=== PATIENT | female | born 1970 | race Caucasian/White ===

== ENCOUNTER → 2018-06-19 | Outpatient (CLI) | payer MEDICAID | LOC: OD 12:31 | PROVIDERS: ATTEND Nurse Practitioner Acute Care | DX: R30.0 Dysuria (principal) | CPT/HCPCS: 87086; 87088; 87186 ==

== ENCOUNTER → 2018-11-20 | Outpatient (CLI) | payer BC, MEDICAID ==
[2018-11-20 15:34] LABS: ABSOLUTE BASOPHILS # (AUTO) 0.1 10^3/uL (0.0-0.2); ABSOLUTE EOSINOPHILS # (AUTO) 0.2 10^3/uL (0.0-0.6); ABSOLUTE LYMPHOCYTES (AUTO) 2.4 10^3/uL (0.5-4.7); ABSOLUTE MONOCYTES (AUTO) 0.5 10^3/uL (0.1-1.4); ABSOLUTE NEUT (AUTO) 3.8 10^3/uL (1.7-8.2); BASOPHILS % (AUTO) 0.8 % (0-2); EOSINOPHILS % (AUTO) 3.1 % (0-6); HEMATOCRIT 36.2 % (36.0-47.0); HEMOGLOBIN 11.7 g/dL (12.0-15.5); LYMPHOCYTES % (AUTO) 34.4 % (13-45); MEAN CORPUSCULAR HEMOGLOBIN 24.9 pg (27.0-33.4); MEAN CORPUSCULAR HGB CONC 32.4 g/dL (32.0-36.0); MEAN CORPUSCULAR VOLUME 77 fl (80-97); MONOCYTES % (AUTO) 7.6 % (3-13); PLATELET COUNT 351 10^3/uL (150-450); RED BLOOD COUNT 4.71 10^6/uL (3.72-5.28); RED CELL DISTRIBUTION WIDTH 17.8 % (11.5-14.0); SEGMENTED NEUTROPHILS % (AUTO) 54.1 % (42-78); TOTAL CELLS COUNTED % (AUTO) 100 %
[2018-11-20 15:37] LABS: INTERNATIONAL RATION (INR) 0.93
[2018-11-20 15:38] LABS: PARTIAL THROMBOPLASTIN TIME 27.5 SEC (23.5-35.8)
[2018-11-20 15:42] LABS: APPEARANCE,URINE SLIGHTLY-CLOUDY; BILIRUBIN,URINE NEGATIVE (NEGATIVE); COLOR,URINE YELLOW; GLUCOSE, URINE NEGATIVE (NEGATIVE); KETONES,URINE NEGATIVE (NEGATIVE); LEUKOCYTE ESTERASE,URINE TRACE (NEGATIVE); NITRITE,URINE NEGATIVE (NEGATIVE); PROTEIN,URINE NEGATIVE (NEGATIVE); URINE SPECIFIC GRAVITY 1.015; UROBILINOGEN,URINE NEGATIVE mg/dL (<2.0)
== END ==
LOC: OD 14:40
PROVIDERS: ATTEND Pain Medicine Interventional Pain Medicine
DX: D68.9 Coagulation defect, unspecified (principal)
CPT/HCPCS: 36415; 81001; 85025; 85610; 85730

== ENCOUNTER 2019-01-26 06:08 | Day surgery (SDC) | payer BC, MEDICAID ==
[2019-01-22 09:53] LABS: HEMOGLOBIN 11.4 g/dL (12.0-15.5); MEAN CORPUSCULAR HEMOGLOBIN 24.7 pg (27.0-33.4); MEAN CORPUSCULAR HGB CONC 32.4 g/dL (32.0-36.0); MEAN CORPUSCULAR VOLUME 76 fl (80-97); PLATELET COUNT 322 10^3/uL (150-450); RED CELL DISTRIBUTION WIDTH 17.3 % (11.5-14.0); WHITE BLOOD COUNT 4.5 10^3/uL (4.0-10.5)
[2019-01-22 09:53] LABS: APPEARANCE,URINE SLIGHTLY-CLOUDY; BILIRUBIN,URINE NEGATIVE (NEGATIVE); COLOR,URINE YELLOW; GLUCOSE, URINE NEGATIVE (NEGATIVE); KETONES,URINE NEGATIVE (NEGATIVE); LEUKOCYTE ESTERASE,URINE NEGATIVE (NEGATIVE); NITRITE,URINE NEGATIVE (NEGATIVE); PROTEIN,URINE NEGATIVE (NEGATIVE); URINE SPECIFIC GRAVITY 1.016; UROBILINOGEN,URINE NEGATIVE mg/dL (<2.0)
--- NOTE | 2019-01-22 09:58 | RADIOLOGY REPORT (SQ) ---
EXAM DESCRIPTION: CHEST PA/LATERAL COMPLETED DATE/TIME: 01/22/2019 9:38 am REASON FOR STUDY: PRE-OP COMPARISON: None. EXAM PARAMETERS: NUMBER OF VIEWS: two views TECHNIQUE: Digital Frontal and Lateral radiographic views of the chest acquired. RADIATION DOSE: NA LIMITATIONS: none FINDINGS: LUNGS AND PLEURA: No opacities, masses or pneumothorax. No pleural effusion. MEDIASTINUM AND HILAR STRUCTURES: No masses or contour abnormalities. HEART AND VASCULAR STRUCTURES: Heart normal size. No evidence for failure. BONES: No acute findings. HARDWARE: None in the chest. OTHER: No other significant finding. IMPRESSION: 1. NO SIGNIFICANT RADIOGRAPHIC FINDING IN THE CHEST. TECHNICAL DOCUMENTATION: JOB ID: [id number] [employer]- All Rights Reserved Reading location - IP/workstation name: [email or web address]
[2019-01-22 09:59] LABS: INTERNATIONAL RATION (INR) 0.94; PARTIAL THROMBOPLASTIN TIME 26.5 SEC (23.5-35.8)
--- NOTE | 2019-01-22 21:57 | EKG REPORT ---
SEVERITY:- NORMAL ECG - SINUS RHYTHM : Confirmed by: Vishal Roblero 22-Jan-2019 21:56:36
[~2019-01-26 06:08] MED LIST: CLINDAMYCIN 900 MG/D5W RTU 900 MG/50 ML RTUPB IV ONE; CLINDAMYCIN 900 MG/D5W RTU 900 MG/50 ML RTUPB IV PRN; LACTATED RINGERS 1000 ML IV PRN; LIDOCAINE 0.5% INJ-PF (5 MG/ML) 50 ML SDV SUBCUT PRN
[2019-01-26] MEDS ORDERED: MIDAZOLAM 2 MG/2 ML INJ ONE (06:18)
[2019-01-26] MEDS ORDERED: PROPOFOL INJ 200 MG/20 ML VIAL IV ONE ×3 (06:18→10:29)
[2019-01-26] MEDS ORDERED: FENTANYL CITRATE INJ/PF 100 MCG/2 ML AMPUL ONE (06:18)
[2019-01-26] MEDS ORDERED: LIDOCAINE 2% INJ-PF (100 MG/5 ML) SYRINGE ONE (06:18)
[2019-01-26] MEDS ORDERED: LIDOCAINE 1% INJ-PF (10 MG/ML) 30 ML SDV ONE ×2 (07:21→08:41)
[2019-01-26] MEDS ORDERED: SODIUM BICARBONATE 8.4% INJ 50 MEQ/50 ML DISP.SYRIN ONE (07:21)
[2019-01-26] MEDS ORDERED: BUPIVACAINE HCL 0.5%-EPI 1:200000 INJ/PF 30 ML VIAL ONE (07:22)
[2019-01-26] MEDS ORDERED: PROMETHAZINE HCL INJ 25 MG/1 ML VIAL IV PRN ×2 (09:09)
[2019-01-26] MEDS ORDERED: FENTANYL CITRATE INJ/PF 100 MCG/2 ML AMPUL IV PRN ×3 (09:09)
[2019-01-26] MEDS ORDERED: MEPERIDINE HCL/PF INJ 25 MG/1 ML DISP.SYRIN IV PRN (09:09)
[2019-01-26] MEDS ORDERED: DIPHENHYDRAMINE HCL 50 MG/ML VIAL IV PRN (09:09)
[2019-01-26] MEDS ORDERED: MORPHINE SULFATE 10 MG/ML INJ IV PRN (09:09)
[2019-01-26] MEDS: FENTANYL CITRATE INJ/PF 100 MCG/2 ML AMPUL ONE ×2 (10:30→10:35)
[2019-01-26] MEDS ORDERED: HYDROMORPHONE HCL 2 MG TABLET PO PRN (10:33)
--- NOTE | 2019-01-26 10:53 | OPERATIVE REPORT E ---
Operative Report NAME: DOMINIC BARTON : 1970 AGE: 48Y DATE OF SURGERY: 01/26/2019 ROOM: PREOPERATIVE DIAGNOSIS: Lumbar radiculopathy. POSTOPERATIVE DIAGNOSIS: Lumbar radiculopathy. OPERATION: Spinal cord stimulator implant with Impulse generator and 2 percutaneous leads from [employer]. SURGEON: VIRGIE ARIZA M.D. FOOD SAFETY TECHNICIAN: None. ANESTHESIA: MAC. COMPLICATIONS: None. PROCEDURE IN DETAIL: After obtaining informed consent and advising the patient of all the risks and benefits, including serious neurologic injury, bleeding, infection, spinal fluid leak, allergic reaction, paralysis, nerve injury, , and failure to obtain satisfactory relief, she was taken to the operating room and placed comfortably in a prone position. MAC anesthesia was administered. After application of the monitoring she was then prepped with ChloraPrep x2 and then draped. After an appropriate waiting and drying time she was then evaluated under fluoroscopy and adequate space was found at T12-L1. A skin level at the premarked buttock incision on the left and the midline was anesthetized with 1% lidocaine with bicarbonate followed by 0.25% bupivacaine with epinephrine. Beginning at the midline incision, sharp and blunt dissection was followed down to the fascia using a left paramedian approach. A 14-gauge Tuohy needle was placed in the epidural space at T12-L1. Loss of resistance to saline technique was utilized beginning with the first needle. Electrode was advanced under fluoroscopic guidance to the middle of T6, being positioned in the midline. A second needle using the same technique of loss of resistance using the right paramedian approach on the right side. Lateral views were taken which showed satisfactory placement. These were then tested and appropriate stimulation was found with discussion with the patient. Once again, the leads were then secured with pursestrings with anchors in place. The anchors were then sutured in place. [place] were removed sequentially. A pursestring stitch securing the anchor was placed and secured as well. The anchor was appropriately screw driven down. After lead position was finished Dr. Ariza began creating the pocket for the new pulse generator. As soon as the pocket was made proper hemostasis was confirmed. The skin between tunneling was then performed using anesthesia with 1% lidocaine and the standard tunneling tool. Both incisions were felt to be satisfactory and proper hemostasis was confirmed. The wires were placed in the midline, stitched to the pocket, and connected to the pulse generator, which was then tested and appropriate communication was made. All connections were secure. The generator was then placed in the pocket and assessed and found to be satisfactory. The position was again checked via fluoroscopy in both the AP and lateral views. The wounds were then copiously irrigated. The areas were then closed with interrupted vertical mattress suture using 2-0 Vicryl. [place] were used in the midline with tape and Dermabond over the buttock with skin cement over the buttock incision. OpSite dressings were then placed overlying the tape after sufficient drying time. The patient was taken to the PACU for further postoperative wound care and monitoring and will follow up in the clinic tomorrow. DICTATING PHYSICIAN: VIRGIE ARIZA M.D. [id number] PHY#: [id number] ID: [id number] JOB#: [id number] ACCT: [id number] cc:VIRGIE ARIZA M.D. >
[2019-01-26] MEDS ORDERED: HYDROMORPHONE HCL 2 MG TABLET ONE (11:32)
[2019-01-26 12:24] VITALS: BP 143/83
--- NOTE | 2019-01-26 14:10 | RADIOLOGY REPORT (SQ) ---
EXAM DESCRIPTION: NO CHG FLUORO; THORACOLUMBAR SPINE AP/LAT COMPLETED DATE/TIME: 01/26/2019 1:32 pm REASON FOR STUDY: SPINAL STIMULATOR PLCMT ASST WITH FLUORO IN OR COMPARISON: None. FLUOROSCOPY TIME: 6.3 minutes Benign Images saved to PACS LIMITATIONS: None. PROCEDURE: Neurostimulator electrode placement. FINDINGS: Images obtained from fluoro document placement of neurostimulator electrodes in the mid to lower thoracic spine. IMPRESSION: Neurostimulator electrode placement. Refer to operative note for further information. COMMENT: PQRS 6045F: Fluoroscopy time of the procedure is documented in the report. TECHNICAL DOCUMENTATION: JOB ID: [id number] [employer]- All Rights Reserved Reading location - IP/workstation name: [email or web address]
--- NOTE | 2019-01-26 14:10 | RADIOLOGY REPORT (SQ) ---
EXAM DESCRIPTION: NO CHG FLUORO; THORACOLUMBAR SPINE AP/LAT COMPLETED DATE/TIME: 01/26/2019 1:32 pm REASON FOR STUDY: SPINAL STIMULATOR PLCMT ASST WITH FLUORO IN OR COMPARISON: None. FLUOROSCOPY TIME: 6.3 minutes Benign Images saved to PACS LIMITATIONS: None. PROCEDURE: Neurostimulator electrode placement. FINDINGS: Images obtained from fluoro document placement of neurostimulator electrodes in the mid to lower thoracic spine. IMPRESSION: Neurostimulator electrode placement. Refer to operative note for further information. COMMENT: PQRS 6045F: Fluoroscopy time of the procedure is documented in the report. TECHNICAL DOCUMENTATION: JOB ID: [id number] [employer]- All Rights Reserved Reading location - IP/workstation name: [email or web address]
== END 2019-01-26 12:25 | disposition home or self-care (01) ==
LOC: OROUT 06:08
PROVIDERS: ATTEND Student in an Organized Health Care Education/Training Program
DX: M54.16 Radiculopathy, lumbar region (principal); G89.4 Chronic pain syndrome; E07.9 Disorder of thyroid, unspecified; M96.1 Postlaminectomy syndrome, not elsewhere classified; F45.42 Pain disorder with related psychological factors; R03.0 Elevated blood-pressure reading, without diagnosis of hypertension; K59.03 Drug induced constipation; Z88.0 Allergy status to penicillin; Z79.899 Other long term (current) drug therapy; Z79.891 Long term (current) use of opiate analgesic
CPT/HCPCS: 93010; 93005; 36415; 82962; 85027; 85610; 85730; 81001; 71046; 72080; 63685; 63650; C1778; C1820; C1713; J2250; J3490 ×3; J3010; J2001; J2704

== ENCOUNTER 2019-03-14 06:52 | Emergency (ER) | payer BC, MEDICAID ==
[2019-03-14] MEDS ORDERED: NORMAL SALINE 1000 ML 1,000 ML IV ONE ×2 (07:36→08:59)
[2019-03-14] MEDS ORDERED: LIDOCAINE 2% VISCOUS SOLN 20 ML UDCUP PO ONE ×2 (07:36→11:00)
[2019-03-14] MEDS ORDERED: ONDANSETRON HCL INJ/PF 4 MG/2 ML SDV IV ONE (07:36)
[2019-03-14] MEDS ORDERED: MAG HYDROX/AL HYDROX/SIMETH SUSP 30 ML UDCUP PO ONE ×2 (07:36→11:00)
--- NOTE | 2019-03-14 08:12 | RADIOLOGY REPORT (SQ) ---
EXAM DESCRIPTION: ABDOMEN 2 VIEWS COMPLETED DATE/TIME: 03/14/2019 8:03 am REASON FOR STUDY: Nausea, vomiting S/P gastric bypass COMPARISON: None. NUMBER OF VIEWS: Two views. TECHNIQUE: Supine and erect/decubitus radiographic images of the abdomen acquired. LIMITATIONS: None. FINDINGS: FREE AIR: None. No abnormal gas collections. LUNG BASES: Clear. BOWEL GAS PATTERN: Nonobstructive pattern. No dilated loops or air fluid levels. CALCIFICATIONS: No suspicious calcifications. SOFT TISSUES: No gross mass or suggestion of organomegaly. HARDWARE: Right upper quadrant clips. Spine stimulator. BONES: Surgical changes lower lumbar spine. OTHER: No other significant finding. IMPRESSION: NO RADIOGRAPHIC EVIDENCE FOR ACUTE ABDOMINAL DISEASE. TECHNICAL DOCUMENTATION: JOB ID: [id number] [employer]- All Rights Reserved Reading location - IP/workstation name: [email or web address]
[2019-03-14 08:17] LABS: ABSOLUTE EOSINOPHILS # (AUTO) 0.1 10^3/uL (0.0-0.6); ABSOLUTE MONOCYTES (AUTO) 0.4 10^3/uL (0.1-1.4); ABSOLUTE NEUT (AUTO) 4.7 10^3/uL (1.7-8.2); BASOPHILS % (AUTO) 0.7 % (0-2); EOSINOPHILS % (AUTO) 0.9 % (0-6); HEMATOCRIT 35.9 % (36.0-47.0); HEMOGLOBIN 11.8 g/dL (12.0-15.5); LYMPHOCYTES % (AUTO) 15.9 % (13-45); MEAN CORPUSCULAR HEMOGLOBIN 24.9 pg (27.0-33.4); MEAN CORPUSCULAR HGB CONC 32.9 g/dL (32.0-36.0); MEAN CORPUSCULAR VOLUME 76 fl (80-97); MONOCYTES % (AUTO) 6.1 % (3-13); PLATELET COUNT 384 10^3/uL (150-450); RED BLOOD COUNT 4.75 10^6/uL (3.72-5.28); RED CELL DISTRIBUTION WIDTH 18.3 % (11.5-14.0); SEGMENTED NEUTROPHILS % (AUTO) 76.4 % (42-78); TOTAL CELLS COUNTED % (AUTO) 100 %; WHITE BLOOD COUNT 6.1 10^3/uL (4.0-10.5)
[2019-03-14 08:36] LABS: ALANINE AMINOTRANSFERASE 27 U/L (9-52); ALBUMIN 4.3 g/dL (3.5-5.0); ALKALINE PHOSPHATASE 191 U/L (38-126); ANION GAP 10 (5-19); ASPARTATE AMINO TRANSFERASE 21 U/L (14-36); BILIRUBIN,DIRECT 0.2 mg/dL (0.0-0.4); BILIRUBIN,TOTAL 0.5 mg/dL (0.2-1.3); BLOOD UREA NITROGEN 8 mg/dL (7-20); CALCIUM 10.7 mg/dL (8.4-10.2); CARBON DIOXIDE 20 mmol/L (22-30); CHLORIDE 109 mmol/L (98-107); GLUCOSE 153 mg/dL (75-110); LIPASE 24.3 U/L (23-300); POTASSIUM 4.6 mmol/L (3.6-5.0); TOTAL PROTEIN 7.6 g/dL (6.3-8.2)
[2019-03-14 08:50] LABS: APPEARANCE,URINE SLIGHTLY-CLOUDY; BILIRUBIN,URINE NEGATIVE (NEGATIVE); COLOR,URINE YELLOW; GLUCOSE, URINE NEGATIVE (NEGATIVE); KETONES,URINE 20 mg/dL (NEGATIVE); LEUKOCYTE ESTERASE,URINE NEGATIVE (NEGATIVE); NITRITE,URINE NEGATIVE (NEGATIVE); PROTEIN,URINE NEGATIVE (NEGATIVE)
[2019-03-14] MEDS ORDERED: HYDROMORPHONE HCL INJ/PF 2 MG/ML AMPULE IV ONE ×2 (08:59→11:00)
[2019-03-14] MEDS ORDERED: FAMOTIDINE INJ/PF 20 MG/2 ML SDV IV ONE (11:00)
--- NOTE | 2019-03-14 12:04 | RADIOLOGY REPORT (SQ) ---
EXAM DESCRIPTION: CT ABD/PELVIS WITH IV ORAL COMPLETED DATE/TIME: 03/14/2019 11:43 am REASON FOR STUDY: Epigastric,RUQ pain,w/ N V, s/p gastric bypass COMPARISON: None. TECHNIQUE: CT scan of the abdomen and pelvis performed with intravenous and oral contrast using sheldon jacqueline scanning technique with dynamic intravenous contrast injection. Images reviewed with lung, soft t issue, and bone windows. Reconstructed coronal and sagittal MPR images reviewed. Delayed images for e valuation of the urinary system also acquired. All images stored on PACS. All CT scanners at this facility use dose modulation, iterative reconstruction, and/or weight based d osing when appropriate to reduce radiation dose to as low as reasonably achievable (ALARA). [facility]: Dose Right [facility]: CareDose [facility]: Dose Right [facility]: Teradose 4D [facility]: Upstream CONTRAST TYPE AND DOSE: contrast/concentration: Isovue 350.00 mg/ml; Total Contrast Delivered: 100.0 ml; Total Saline Delivered: 72.0 ml RENAL FUNCTION: Creatinine 0.52 RADIATION DOSE: CT Rad equipment meets quality standard of care and radiation dose reduction techniq ues were employed. CTDIvol: 19.9 - 20.9 mGy. DLP: 2446 mGy-cm. . LIMITATIONS: None. FINDINGS: LOWER CHEST: No significant findings. No nodules or infiltrates. LIVER: Normal size. No masses. No dilated ducts. SPLEEN: Normal size. No focal lesions. PANCREAS: No masses. No significant calcifications. No adjacent inflammation or peripancreatic fluid collections. Pancreatic duct not dilated. GALLBLADDER: Surgically absent. ADRENAL GLANDS: No significant masses or asymmetry. RIGHT KIDNEY AND URETER: No solid masses. No significant calcifications. No hydronephrosis or hyd roureter. LEFT KIDNEY AND URETER: No solid masses. No significant calcifications. No hydronephrosis or hydr oureter. AORTA AND VESSELS: No aneurysm. No dissection. Renal arteries, SMA, celiac without stenosis. RETROPERITONEUM: No retroperitoneal adenopathy, hemorrhage or masses. BOWEL AND PERITONEAL CAVITY: No obstruction. No visualized masses. No free fluid. No inflammatory ch anges or thickening of bowel wall. Prior gastric surgery. APPENDIX: Not visualized. PELVIS: No significant masses. Normal bladder. No free fluid. ABDOMINAL WALL: Ventral hernia contains nonobstructed bowel. BONES: Surgical changes. OTHER: No other significant finding. IMPRESSION: Ventral hernia contains nonobstructed bowel. No acute findings. TECHNICAL DOCUMENTATION: JOB ID: [id number] Quality ID # [id number]: Final reports with documentation of one or more dose reduction techniques (e.g., Au tomated exposure control, adjustment of the mA and/or kV according to patient size, use of iterative reconstruction technique) 2010 [employer]- All Rights Reserved Reading location - IP/workstation name: [email or web address]
[2019-03-14 13:30] VITALS: BP 140/82
--- NOTE | 2019-03-14 13:34 | ER Document Report ---
Entered by AMARI MORROW SCRIBE 03/14/19 0743 Acting as scribe for:TOMAS CAGLE MD ED General - General Chief Complaint: Nausea/Vomiting Stated Complaint: VOMITING Time Seen by Provider: 03/14/19 07:22 Primary Care Provider: GRACIELA LANE, [employer] [Primary Care Provider] - Follow up as needed Mode of Arrival: Ambulatory Information source: Patient Notes: Patient is a 48 year old female presenting to the emergency department complain ing of abdominal pain, vomiting and dry heaving onset yesterday evening. Patient states her pain is located epigastrically and radiates into her right upper quadrant. She states "I'm in pain, pain, lots of pain" and reports taking her prescribed Dilaudid does not help her abdominal pain. She states she has not vomited since last night but has been dry heaving. She report similar symptoms after a abdominal surgery in 2017 that resolved approximately 1 month later. Patient reports she is prescribed Dilaudid for her chronic back pain. TRAVEL OUTSIDE OF THE [place] IN LAST 30 DAYS: No - Related Data Allergies/Adverse Reactions: erythromycin base Allergy (Verified 01/21/19 10:35) Palpitations, Chest Pain Penicillins Allergy (Verified 01/21/19 10:35) Hives, Projectile Vomiting Past Medical History - General Information source: Patient - Social History Smoking Status: Never Smoker Cigarette use (# per day): No Chew tobacco use (# tins/day): No Smoking Education Provided: No Frequency of alcohol use: None Family History: Reviewed & Not Pertinent - Past Medical History Cardiac Medical History: Reports: Hx Hypertension Past Surgical History: Reports: Hx Cholecystectomy, Hx Gastric Bypass Surgery, Hx Orthopedic Surgery - L4-S1 fusion. Spinal stiumlator 01/26/2019. Review of Systems - Review of Systems Constitutional: No symptoms reported EENT: No symptoms reported Cardiovascular: No symptoms reported Respiratory: No symptoms reported Gastrointestinal: See HPI, Diarrhea, Nausea, Vomiting Genitourinary: No symptoms reported Female Genitourinary: No symptoms reported Musculoskeletal: No symptoms reported Skin: No symptoms reported Hematologic/Lymphatic: No symptoms reported Neurological/Psychological: No symptoms reported -: Yes All other systems reviewed and negative Physical Exam - Vital signs Vitals: Temp Pulse Resp BP Pulse Ox 98.4 F 85 16 155/89 H 100 03/14/19 07:01 03/14/19 07:01 03/14/19 07:01 03/14/19 07:01 03/14/19 07:01 - Notes Notes: GENERAL: Alert, interacts well. No acute distress. HEAD: Normocephalic, atraumatic. EYES: Pupils equal, round, and reactive to light. Extraocular movements intact. ENT: Oral mucosa moist, tongue midline. NECK: Full range of motion. Supple. Trachea midline. LUNGS: Clear to auscultation bilaterally, no wheezes, rales, or rhonchi. No respiratory distress. No tenderness to palpate the sternum. HEART: Regular rate and rhythm. No murmurs, gallops, or rubs. ABDOMEN: Soft. Epigastrium tender to palpation, RUQ less tender to palpation. Non-distended. Decreased bowel sounds. Abdomen dull to percussion. No guarding, rigidity, or rebound. EXTREMITIES: Moves all 4 extremities spontaneously. No edema, radial and dorsalis pedis pulses 2/4 bilaterally. No cyanosis. NEUROLOGICAL: Alert and oriented x3. Normal speech. PSYCH: Normal affect, normal mood. SKIN: Warm, dry, normal turgor. No rashes or lesions noted. Course - Re-evaluation Re-evalutation: 03/14/19 09:01 Patient reports that GI cocktail did numb up her throat and make that area feel better, but did not make any difference in her epigastric and right upper quadrant abdominal pain. - Vital Signs Vital signs: Temp Pulse Resp BP Pulse Ox 97.9 F 90 16 148/90 H 97 03/14/19 10:57 03/14/19 10:57 03/14/19 10:57 03/14/19 10:57 03/14/19 10:57 - Laboratory Result Diagrams: 03/14/19 08:06 03/14/19 08:06 Laboratory results interpreted by me: 03/14/19 03/14/19 03/14/19 08:06 08:06 08:19 Hgb 11.8 L Hct 35.9 L MCV 76 L MCH 24.9 L RDW 18.3 H Chloride 109 H Carbon Dioxide 20 L Glucose 153 H Calcium 10.7 H Alkaline Phosphatase 191 H Urine Ketones 20 H Urine Urobilinogen 2.0 H - Diagnostic Test Radiology reviewed: Image reviewed - Two-way abdomen shows fusion of the L4-5, L5-S1 levels. Spinal stimulator. Constipation., Reports reviewed - CT scan with IV and oral contrast shows abdominal wall ventral hernia with nonobstructive bowel. Discharge - Discharge Clinical Impression: Chronic pain syndrome Abdominal pain Qualifiers: Abdominal location: upper abdomen, unspecified Qualified Code(s): R10.10 - Upper abdominal pain, unspecified Nausea and vomiting Qualifiers: Vomiting type: unspecified Vomiting Intractability: non-intractable Qualified Code(s): R11.2 - Nausea with vomiting, unspecified Constipation Qualifiers: Constipation type: drug induced constipation Qualified Code(s): K59.03 - Drug induced constipation Condition: Stable Disposition: HOME, SELF-CARE Additional Instructions: Nausea or Vomiting, Nonspecific Vomiting (or nausea without vomiting) can be caused by many different problems. Of course, it can mean that something's wrong with the stomach, such as "stomach flu," ulcers, or inflammation. But it can also be a symptom of a problem that has nothing to do with the stomach or intestines. Vomiting is common with severe headaches, earaches, and tonsillitis. We see it with pneumonia or heart attacks. Drugs can cause nausea. Many abdominal problems cause vomiting; for example, gallstones, kidney stones, pancreatitis, and intestinal obstruction (blocked bowels). In most cases, curing the vomiting depends on fixing the problem that caused it. For temporary relief, we may use an anti-nausea medicine. For home use, we can prescribe suppositories, chewable pills, pills that dissolve in the mouth, or liquid anti-nausea drugs. If the vomiting seems to be caused by a problem in the stomach, acid-suppressing drugs may be prescribed as well. It's important to avoid dehydration. Sip clear liquids. Take increasing amounts of fluid over the first 24 hours. Then start small amounts of bland foods (such as dry toast, applesauce, mashed potato). Avoid aspirin, tobacco, and alcohol. Gradually resume your usual diet. If the vomiting worsens, if the problem that's making you vomit worsens, or if there's evidence of bleeding in the stomach (such as black, tarry stool, bloody or black vomit, or lightheadedness), you should return immediately. Call your doctor if you aren't improved in 24 to 36 hours. Abdominal Pain There are many causes of abdominal pain. Pain can mean a serious problem requiring surgery (such as appendicitis). It can also be an innocent problem that goes away on its own (such as a viral infection). Often, time must pass to determine the cause of pain. The physician does not feel that hospitalization is necessary, at present. Things may change within the next 24 hours. Call the doctor or come back for re- examination if any problems occur, such as: (1) Pain that becomes more severe, steady, or becomes concentrated in one specific area. Also, pain that is more severe with movement or coughing. (2) Vomiting that persists or becomes more frequent. (3) Blood in the vomitus, urine, or bowel movements. Blood in the stool may have a tarry or black appearance. (4) Shaking chills or fever greater than 100 degrees F. (5) The abdomen becomes more distended or swollen. (6) Bowel movements cease. (7) Failure to improve as expected. Constipation Constipation is a common problem. It is especially likely as you get older. Constipation is a common cause of abdominal pain, but sometimes causes no symptoms at all. Causes of constipation include certain medications, dehydration, diets, inactivity, and low-fiber intake. Rarely, it can be a symptom of underlying disease. The physician has evaluated you for this. Avoid constipation by eating a diet high in fiber, fruits, and vegetables. Drink plenty of liquids. Get regular exercise. If possible, avoid constipating medicines like narcotic pain medication. Some vitamin tablets can cause constipation. Stool softeners may be needed for difficult cases. An excellent stool softener is Konsyl which is available at [employer], and [employer] drug store. Just add a teaspoon to a glass of pineapple or orange juice daily or twice a day if needed. Laxatives are useful for occasional constipation. You should use them only when necessary. Too-frequent use can make your bowels dependent on them. Some over the counter laxatives available without prescription are: Milk of Magnesia, 1-2 tablespoons twice a day Dulcolax, 5 mg pill or 10 mg suppository. Citrate of Magnesia, 4-5 ounces a day for a day or two For acute constipation, Fleet's Enemas and Dulcolax suppositories are helpful. Chronic, longterm use of laxatives or enemas is not a good idea. Your bowel may become dependant on them. You do not need to have a bowel movement every day. Many people do fine with a bowel movement every three or four days. You should call your doctor or return for re-evaluation if you pass blood in the stool, or if you develop fever or increasing abdominal pain. Your CT scan did not show any acute abnormalities in your abdomen or pelvis. Your lab work did not suggest an infectious process or any other problems. Your plain film x-ray of the abdomen does suggest constipation. I suspect to developed a viral gastrointestinal illness causing the nausea and vomiting and this led to straining the upper anterior abdominal wall. If your vomiting and not keeping down fluids, that increases your risk of constipation. You should take the medication as prescribed for nausea. Drink plenty of fluids and get plenty of rest. Follow-up with your doctor this week if not improving. RETURN TO THE EMERGENCY ROOM IF ANY NEW OR WORSENING SYMPTOMS. Prescriptions: Ondansetron [Zofran Odt 4 mg Tablet] 1 - 2 tab PO Q4H #14 tab.rapdis Referrals: GRACIELA LANE, [employer] [Primary Care Provider] - Follow up as needed Scribe Attestation: 03/14/19 08:42 I personally performed the services described in the documentation, reviewed and edited the documentation which was dictated to the scribe in my presence, and it accurately records my words and actions. I personally performed the services described in the documentation, reviewed and edited the documentation which was dictated to the scribe in my presence, and it accurately records my words and actions.
== END 2019-03-14 13:30 | disposition home or self-care (01) ==
LOC: ER 06:52
DX: G89.4 Chronic pain syndrome (principal); R10.10 Upper abdominal pain, unspecified; R11.2 Nausea with vomiting, unspecified; K59.03 Drug induced constipation; I10 Essential (primary) hypertension; Z88.3 Allergy status to other anti-infective agents; Z88.0 Allergy status to penicillin; Z98.1 Arthrodesis status; Z98.84 Bariatric surgery status
CPT/HCPCS: 96376; 99284; 96361; 96374; 96375; 36415; 83690; 83735; 84703; 85025; 80053; 81001; 74019; 74177; J3490; J1170; J2405; J7030; S0028

== ENCOUNTER 2019-03-17 17:56 | Emergency (ER) | payer BC, MEDICAID ==
[2019-03-17] MEDS ORDERED: KETOROLAC TROMETHAMINE INJ/PF 30 MG/1 ML SDV IM ONE (20:35)
--- NOTE | 2019-03-17 20:39 | ER Document Report ---
ED Medical Screen (RME) - General Chief Complaint: Shortness Of Breath Stated Complaint: SOB Time Seen by Provider: 03/17/19 20:25 Primary Care Provider: GRACIELA LANE NP [Primary Care Provider] - Follow up as needed Mode of Arrival: Ambulatory Information source: Patient TRAVEL OUTSIDE OF THE [place] IN LAST 30 DAYS: No - HPI Patient complains to provider of: CHEST PAIN Notes: 03/17/19 20:36 Patient here with complaints of right-sided chest pain. The patient was seen here a few days ago and had an abdominal work-up which was unremarkable. He is now complaining of some right-sided chest pain. She states it seems to feel somewhat better if she lifts her right breast up. She denies any injury. No shortness of breath. Patient denies any recent long trips or surgeries, leg pain or leg swelling, history of DVT or PE, cancer, hormone use. Apparently the patient was sitting on the toilet in the bathroom when her pain got worse causing her to fall off the toilet. She states that she hit her face, denies loss of consciousness. She is not on blood thinners. She denies any other injury from this. I was called into the bathroom to help get the patient up. Exam Nontoxic-appearing, no distress. Patient appears to be somewhat uncomfortable. She is noted to be holding her right breast up. No signs of significant facial trauma. No midline tenderness, step-offs or crepitus to the cervical spine. Nonfocal neuro exam. Lungs clear and equal throughout. Heart sounds normal. Right-sided chest wall tenderness to palpation. No crepitus. Plan CBC, CMP, troponin, EKG, chest x-ray, Toradol An initial examination was made on the patient as part of the triage process, and it was determined a more comprehensive evaluation was necessary. Initial labs were ordered and patient was transferred to another provider in the ED who assumed care and finished evaluation and plan. 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 Spinal stiumlator 01/26/2019. - Immunizations History of Influenza Vaccine for 08/2017 - 01/2018 Season: No Physical Exam - Vital signs Vitals: Temp Pulse Resp BP Pulse Ox 98.3 F 75 18 184/99 H 100 03/17/19 18:00 03/17/19 18:00 03/17/19 18:00 03/17/19 18:00 03/17/19 18:00 Course - Vital Signs Vital signs: Temp Pulse Resp BP Pulse Ox 98.3 F 75 18 184/99 H 100 03/17/19 18:00 03/17/19 18:00 03/17/19 18:00 03/17/19 18:00 03/17/19 18:00 Doctor's Discharge - Discharge Referrals: [facility]ACIEL[facility] L[facility] LOAD MANAGER [Primary Care Provider] - Follow up as needed
[2019-03-17] MEDS ORDERED: ONDANSETRON HCL INJ/PF 4 MG/2 ML SDV IM ONE (21:01)
--- NOTE | 2019-03-17 22:13 | RADIOLOGY REPORT (SQ) ---
XR CHEST 2 VIEWS HISTORY: Right-sided chest pain. COMPARISON: None. FINDINGS: The heart size is normal. No consolidation, pleural effusion, or pneumothorax is seen. There are no acute bony findings. Neurostimulator device lead tips project over the mid thoracic spine. IMPRESSION: No evidence of acute cardiopulmonary disease.
[2019-03-17 23:35] LABS: ABSOLUTE LYMPHOCYTES (AUTO) 0.7 10^3/uL (0.5-4.7); ABSOLUTE MONOCYTES (AUTO) 0.1 10^3/uL (0.1-1.4); ABSOLUTE NEUT (AUTO) 7.8 10^3/uL (1.7-8.2); BASOPHILS % (AUTO) 0.2 % (0-2); EOSINOPHILS % (AUTO) 0.1 % (0-6); HEMATOCRIT 37.2 % (36.0-47.0); HEMOGLOBIN 12.1 g/dL (12.0-15.5); LYMPHOCYTES % (AUTO) 8.4 % (13-45); MEAN CORPUSCULAR HEMOGLOBIN 24.7 pg (27.0-33.4); MEAN CORPUSCULAR HGB CONC 32.6 g/dL (32.0-36.0); MEAN CORPUSCULAR VOLUME 76 fl (80-97); MONOCYTES % (AUTO) 1.5 % (3-13); PLATELET COUNT 380 10^3/uL (150-450); RED BLOOD COUNT 4.91 10^6/uL (3.72-5.28); RED CELL DISTRIBUTION WIDTH 18.4 % (11.5-14.0); SEGMENTED NEUTROPHILS % (AUTO) 89.8 % (42-78); TOTAL CELLS COUNTED % (AUTO) 100 %; WHITE BLOOD COUNT 8.7 10^3/uL (4.0-10.5)
[2019-03-17 23:41] LABS: ALANINE AMINOTRANSFERASE 26 U/L (9-52); ALBUMIN 4.5 g/dL (3.5-5.0); ALKALINE PHOSPHATASE 219 U/L (38-126); ANION GAP 14 (5-19); ASPARTATE AMINO TRANSFERASE 21 U/L (14-36); BILIRUBIN,DIRECT 0.3 mg/dL (0.0-0.4); BILIRUBIN,TOTAL 0.4 mg/dL (0.2-1.3); BLOOD UREA NITROGEN 6 mg/dL (7-20); CALCIUM 10.5 mg/dL (8.4-10.2); CARBON DIOXIDE 21 mmol/L (22-30); CHLORIDE 103 mmol/L (98-107); GLUCOSE 190 mg/dL (75-110); LIPASE 21.9 U/L (23-300); POTASSIUM 4.9 mmol/L (3.6-5.0); TOTAL PROTEIN 8.1 g/dL (6.3-8.2)
[2019-03-17 23:46] LABS: APPEARANCE,URINE CLOUDY; BILIRUBIN,URINE NEGATIVE (NEGATIVE); GLUCOSE, URINE 50 mg/dL (NEGATIVE); KETONES,URINE 80 mg/dL (NEGATIVE); LEUKOCYTE ESTERASE,URINE SMALL (NEGATIVE); NITRITE,URINE NEGATIVE (NEGATIVE); PROTEIN,URINE 100 mg/dL (NEGATIVE); URINE SPECIFIC GRAVITY 1.018; UROBILINOGEN,URINE NEGATIVE mg/dL (<2.0)
[2019-03-17 23:47] LABS: COLOR,URINE YELLOW
[2019-03-18] MEDS ORDERED: METOCLOPRAMIDE HCL ORAL SOLN 10 MG/10 ML UDCUP PO ONE (00:45)
[2019-03-18] MEDS ORDERED: MAG HYDROX/AL HYDROX/SIMETH SUSP 30 ML UDCUP PO ONE (00:45)
[2019-03-18] MEDS ORDERED: FAMOTIDINE 20 MG TABLET PO ONE (00:45)
[2019-03-18] MEDS ORDERED: LIDOCAINE 2% VISCOUS SOLN 20 ML UDCUP PO ONE (00:45)
[2019-03-18] MEDS ORDERED: SUCRALFATE 1 GM TABLET PO ONE (00:45)
[2019-03-18] MEDS ORDERED: HYDROMORPHONE HCL INJ/PF 2 MG/ML AMPULE IM ONE (00:52)
--- NOTE | 2019-03-18 00:58 | ER Document Report ---
ED General - General Chief Complaint: Shortness Of Breath Stated Complaint: SOB Time Seen by Provider: 03/17/19 20:25 Primary Care Provider: GRACIELA LANE NP [Primary Care Provider] - Follow up as needed Mode of Arrival: Ambulatory Notes: Patient is a 48-year-old female with a past medical history of morbid obesity, chronic opiate dependence secondary to chronic low back pain here with complaints of right-sided chest pain. The patient was seen here a few days ago and had a work-up which was unremarkable with the exception of a hiatal hernia. She is now complaining of some right-sided chest pain similar to when she was here several days ago but states it has gotten even worse. She states it seems to feel somewhat better if she lifts her right breast up. No shortness of br eath. Patient denies any recent long trips or surgeries, leg pain or leg swelling, history of DVT or PE, cancer, hormone use. Pain is described as severe, throbbing, constant to the right upper quadrant and right chest wall. She does have a prior surgical history of a cholecystectomy, prior hernia repair. States "I am absolutely dying of pain, I have not had pain medication in almost 6 hours". TRAVEL OUTSIDE OF THE [place] IN LAST 30 DAYS: No - Related Data Allergies/Adverse Reactions: erythromycin base Allergy (Verified 01/21/19 10:35) Palpitations, Chest Pain Penicillins Allergy (Verified 01/21/19 10:35) Hives, Projectile Vomiting Past Medical History - General Information source: Patient - Social History Smoking Status: Never Smoker Frequency of alcohol use: None Drug Abuse: None Family History: Reviewed & Not Pertinent Patient has suicidal ideation: No Patient has homicidal ideation: No - Past Medical History Cardiac Medical History: Reports: Hx Hypertension Denies: Hx Heart Attack Pulmonary Medical History: Denies: Hx Asthma, Hx Bronchitis, Hx COPD, Hx Pneumonia Neurological Medical History: Denies: Hx Cerebrovascular Accident, Hx Seizures Endocrine Medical History: Reports: Hx Diabetes Mellitus Type 2 - "pre" Renal/ Medical History: Denies: Hx Peritoneal Dialysis Musculoskeletal Medical History: Denies Hx Arthritis Psychiatric Medical History: Reports: Hx Depression Past Surgical History: Reports: Hx Cholecystectomy, Hx Gastric Bypass Surgery, Hx Orthopedic Surgery - L4-S1 fusion. Spinal stiumlator 01/26/2019. Review of Systems - Review of Systems Notes: Constitutional: Negative for fever. HENT: Negative for sore throat. Eyes: Negative for visual changes. Cardiovascular: Positive for chest pain. Respiratory: Negative for shortness of breath. Gastrointestinal: Positive for upper abdominal pain, nausea and vomiting Genitourinary: Negative for dysuria. Musculoskeletal: Negative for back pain. Skin: Negative for rash. Neurological: Negative for headaches, weakness or numbness. 10 point ROS negative except as marked above and in HPI. Physical Exam - Vital signs Vitals: Temp Pulse Resp BP Pulse Ox 98.3 F 75 18 184/99 H 100 03/17/19 18:00 03/17/19 18:00 03/17/19 18:00 03/17/19 18:00 03/17/19 18:00 Interpretation: Hypertensive Notes: PHYSICAL EXAMINATION: GENERAL: Rocking back and forth in the bed, quite anxious HEAD: Atraumatic, normocephalic. EYES: Pupils equal round and reactive to light, extraocular movements intact, sclera anicteric, conjunctiva are normal. ENT: nares patent, oropharynx clear without exudates. Moderately dry mucous membranes. NECK: Normal range of motion, supple without lymphadenopathy LUNGS: Breath sounds clear to auscultation bilaterally and equal. No wheezes rales or rhonchi. HEART: Regular rate and rhythm without murmurs ABDOMEN: Soft, mild tenderness on palpation of the right upper abdomen without any other areas of localized tenderness, normoactive bowel sounds. No guarding, no rebound. No masses appreciated. EXTREMITIES: Normal range of motion, no pitting or edema. No cyanosis. NEUROLOGICAL: No focal neurological deficits. Moves all extremities spontaneously and on command. PSYCH: Highly anxious SKIN: Warm, Dry, normal turgor, no rashes or lesions noted. Course - Re-evaluation Re-evalutation: 03/18/19 00:56 Patient presents with right upper quadrant, epigastric and right-sided chest pain that has been ongoing for several days. The patient is somewhat histrionic, highly anxious, asking for pain medication, Dilaudid by name. Patient does take an extensive quantity of narcotic pain medication at home including 12 mg of extended release Dilaudid as well as 3 mg of Dilaudid up to 4 times daily. The patient is otherwise nontoxic in appearance, her periods of crying and discomfort are easily distractible through history taking and exam taking. Her initial labs are unremarkable, troponin negative, EKG unremarkable. Chest x-ray does not demonstrate any evidence of a very large hiatal hernia. Patient just had CT imaging within the past 72 hours and I do not believe it would be appropriate to repeat as it was done under the exact same circumstances last time and showed a hiatal hernia. Very low clinical suspicion for strangulation of the hernia as patient does characterize symptoms as being identical and simply as having gotten somewhat worse or failing to improve from her previous visit. Will repeat troponin III hours after initial, provide antiemetics, GI cocktail, IM hydromorphone and reassess 03/18/19 03:40 Patient is clinically much improved. Repeat troponin remains normal. States that her pain is much better controlled after receiving Dilaudid. Tolerating oral intake without difficulty. Using her cell phone and in no discomfort at the time of my reassessment. Suspect that her symptoms are likely related to gastritis with associated hiatal hernia. At this time will discharge with return precautions and follow-up recommendations. Verbal discharge instructions given a the bedside and opportunity for questions given. Medication warnings reviewed. Patient is in agreement with this plan and has verbalized understanding of return precautions and the need for primary care follow-up in the next 24-72 hours. - Vital Signs Vital signs: Temp Pulse Resp BP Pulse Ox 98.2 F 75 16 160/76 H 94 03/18/19 02:14 03/18/19 02:14 03/18/19 02:14 03/18/19 03:01 03/18/19 03:01 - Laboratory Result Diagrams: 03/17/19 23:04 03/17/19 23:04 Laboratory results interpreted by me: 03/17/19 03/17/19 03/17/19 22:42 23:04 23:04 MCV 76 L MCH 24.7 L RDW 18.4 H Seg Neutrophils % 89.8 H Lymphocytes % 8.4 L Monocytes % 1.5 L Carbon Dioxide 21 L BUN 6 L Creatinine 0.51 L Glucose 190 H Calcium 10.5 H Alkaline Phosphatase 219 H Lipase 21.9 L Urine Protein 100 H Urine Glucose (UA) 50 H Urine Ketones 80 H Urine Blood SMALL H Ur Leukocyte Esterase SMALL H - Diagnostic Test Radiology reviewed: Image reviewed, Reports reviewed Radiology results interpreted by me: 03/18/19 00:56 Chest x-ray: No acute infiltrate or pneumothorax, no evidence of large hiatal hernia - EKG Interpretation by Me Additional EKG results interpreted by me: 03/18/19 00:58 Sinus rhythm, rate 82. No ST elevations or depressions. QTC is 477. Discharge - Discharge Clinical Impression: Chronic pain syndrome, Hiatal hernia Abdominal pain Qualifiers: Abdominal location: epigastric Qualified Code(s): R10.13 - Epigastric pain Nausea and vomiting Qualifiers: Vomiting type: unspecified Vomiting Intractability: non-intractable Qualified Code(s): R11.2 - Nausea with vomiting, unspecified Condition: Good Disposition: HOME, SELF-CARE Additional Instructions: Your symptoms appear to be most consistent with stomach or upper intestinal irritation likely in association with your hiatal hernia. Please begin taking famotidine 40 mg in the morning and 40 mg at night. Take Carafate prior to meals. You may also take medicine such as Pepto-Bismol or Tums to assist with your pain. Please return to emergency department immediately if you have worsening of your pain, shortness of breath, vomiting, become unable to exert yourself due to pain or difficulty breathing, you pass out, or have any pain that radiates into your arms, jaw, or back. Please also return if you have any additional symptoms that are concerning to you. As we have discussed, the most important thing is lifestyle changes. You need to avoid smoking, sodas, tea, coffee, alcohol, spicy foods, and acidic foods such as citrus fruits, tomato based products, berries, and most fruit juices. Prescriptions: Famotidine 40 mg PO BID #60 tablet Sucralfate [Carafate 1 gm Tablet] 1 gm PO ACHS #120 tablet Referrals: GRACIELA LANE, [facility] [Primary Care Provider] - Follow up tomorrow
[2019-03-18] MEDS ORDERED: HYDROMORPHONE HCL INJ/PF 2 MG/ML AMPULE IV PRN (02:39)
[2019-03-18] MEDS ORDERED: CEPHALEXIN 500 MG CAPSULE PO ONE (03:40)
[2019-03-18 04:05] VITALS: BP 118/71
--- NOTE | 2019-03-18 08:47 | EKG REPORT ---
SEVERITY:- NORMAL ECG - SINUS RHYTHM : Confirmed by: Jean-Claude Salinas MD 18-Mar-2019 08:46:09
== END 2019-03-18 04:24 | disposition home or self-care (01) ==
LOC: ER 17:56
DX: G89.4 Chronic pain syndrome (principal); R06.02 Shortness of breath; R11.2 Nausea with vomiting, unspecified; R10.13 Epigastric pain; R10.11 Right upper quadrant pain; K44.9 Diaphragmatic hernia without obstruction or gangrene; E66.01 Morbid (severe) obesity due to excess calories; I10 Essential (primary) hypertension; Z88.0 Allergy status to penicillin; Z88.3 Allergy status to other anti-infective agents; Z90.49 Acquired absence of other specified parts of digestive tract; Z98.84 Bariatric surgery status
CPT/HCPCS: 93005; 99285; 96372; 96374; 36415; 87086; 83605; 83690; 85025; 87088; 80053; 81001; 84484; 87186; 71046; 93010; J3490; J1885; J1170; J2405

== ENCOUNTER → 2019-03-24 | Outpatient (CLI) | payer BC, MEDICAID | LOC: OD 15:27 | PROVIDERS: ATTEND Nurse Practitioner Family | DX: R30.0 Dysuria (principal) | CPT/HCPCS: 87086; 87088; 87186 ==